=== PATIENT | male | born 1980 | race Caucasian/White ===

== ENCOUNTER 2016-04-23 09:00 | Inpatient (IN) | payer OTHER ==
[~2016-04-23] VITALS: Ht 190.5 cm; Wt 126.0 kg
[~2016-04-23 09:00] MED LIST: ANTI-ITCH28 GM TP; ASPIRIN81 M2 PO; ATARAX,VISTARIL50 MG PO; CELEXA20 MG PO; CEPHALEXIN500 MG PO; CLEOCIN300 MG PO; CLINDAMYCIN HC300 MG PO; DOXYCYCLINE HY100 MG PO; ELIMITE 5% CREA60 GM TP; HYDROCODON-ACE1 EAC7 PO; LISINOPRIL40 MG PO; NAPROSYN500 MG PO; NAPROXEN500 MG PO; NORCO 5/3251 TABLET PO; PEN-VEE K,VEET500 MG PO; PERCOCET 5/31 TABLET PO; PERIDEX1 ML MM; SIMVASTATIN10 M1 PO; SIMVASTATIN40 MG PO; ULTRAM50 MG PO; ZESTRIL,PRINIVI30 MG PO
[2016-04-23 10:13] LABS: HEMATOCRIT 42.9 % (38.0-50.0); MCH 29.8 PG (29.0-34.0); MCHC 35.4 G/DL (30.0-36.0); MCV 84.1 FL (86-99); MEAN PLAT.VOLUME 9.7 uM^3 (9.0-12.4); PLATELET COUNT 265 K/uL (156-360); RBC DIS.WIDTH-CV 13.1 % (11.8-14.6); RBC DIS.WIDTH-SD 39.8 % (39-53); WHITE BLOOD COUNT 11.6 K/uL (4.1-10.2)
[2016-04-23 10:27] LABS: AMPHETAMINE NEGATIVE (500 ng/mL); BARBITURATES NEGATIVE (200 ng/mL); BENZODIAZEPINES NEGATIVE (150 ng/mL); COCAINE NEGATIVE (150 ng/mL); INTERNAL CONTROLS VALID? YES; METHADONE NEGATIVE (200 ng/mL); METHAMPHETAMINE NEGATIVE (500 ng/mL); OPIATES (MORPHINE) PRESUMPTIVE POSITIVE (100 ng/mL); OXYCODONE NEGATIVE (100 ng/mL); PHENCYCLIDINE NEGATIVE (25 ng/mL); PROPOXYPHENE NEGATIVE (300 ng/mL); THC CANNABINOIDS NEGATIVE (50 ng/mL); TRICYCLIC ANTIDEPRESSANTS NEGATIVE (300 ng/mL)
[2016-04-23 10:28] LABS: ADD MEDTOX COMMENT Y
[2016-04-23 10:37] LABS: CHLORIDE 107 mEq/L (99-109); POTASSIUM 3.7 mEq/L (3.7-5.4); SODIUM 138 mEq/L (136-147)
[2016-04-23 10:39] LABS: GLUCOSE 104 mg/dL (70-99)
[2016-04-23 10:40] LABS: ANION GAP 7 MEQ/L (2-14)
[2016-04-23 10:42] LABS: GFR ESTIMATE (CALCULATED) > 59 mL/min/; SERUM ETHYL ALCOHOL < 10 mg/dL
[2016-04-23 10:44] LABS: UREA NITROGEN (BUN) 11 mg/dL (9-23)
[2016-04-23 10:46] LABS: SALICYLATE < 5.0 MG/DL (15-30)
[2016-04-23] MEDS ORDERED: LISINOPRIL20 MG PO (12:20)
[2016-04-23] MEDS ORDERED: METOPROLOL SUCC50 MG PO (12:21)
[2016-04-23] MEDS ORDERED: ESCITALOPRAM OXA5 MG PO (12:21)
[2016-04-23 13:26] VITALS: BP 165/95
[2016-04-23 13:40] VITALS: BP 165/95
[2016-04-23 15:56] VITALS: BP 140/82
[2016-04-24 08:02] VITALS: BP 126/68
[2016-04-24] MEDS ORDERED: DULOXETINE HCL30 MG PO (10:26)
== END 2016-04-24 12:45 | disposition home or self-care (01) | DRG 885 ==
LOC: EME 09:00 → 1WEST 12:08 → EDOF 12:08 → 1WEST 12:08 → EDOF 12:08 → 1WEST 13:24
PROVIDERS: Emergency Medicine
DX: F33.1 Major depressive disorder, recurrent, moderate (principal); I10 Essential (primary) hypertension; F63.9 Impulse disorder, unspecified; M54.9 Dorsalgia, unspecified; F41.9 Anxiety disorder, unspecified; E78.5 Hyperlipidemia, unspecified; F17.210 Nicotine dependence, cigarettes, uncomplicated; T40.4X Poisoning by, adverse effect of and underdosing of other synthetic narcotics; T40.2X2D Poisoning by other opioids, intentional self-harm, subsequent encounter
CPT/HCPCS: 80048; 84999; 85027; 90839; 97150 GO; 97165 GO; 99281; 99285; G0480